=== PATIENT | male | born 1965 ===

== ENCOUNTER 2018-06-03 18:45 | Emergency (ER) | payer SELFPAY ==
[2018-06-03 19:01] VITALS: BMI 28.8
--- NOTE | 2018-06-03 20:22 | ED PDOC ---
Arrival/HPI - General Chief Complaint: Abnormal Skin Integrity Time Seen by Provider: 06/03/18 19:35 Historian: Patient - History of Present Illness Narrative History of Present Illness (Text): 06/03/18 20:20 Fantasma Doan is a 52 year old male with no significant past medical history, who presents to the emergency department complaining of a cyst to his mid- back. Patient states he first noticed the cyst approximately 4 days ago, which has gradually increased in size since then. Patient notes some associated discomfort to the affected area. Patient denies any fever, chills, neck pain, headache, dizziness, or any other complaints. Time/Duration: < week (4 days ago) Symptom Onset: Gradual Symptom Course: Unchanged Context: Home Past Medical History - Provider Review Nursing Documentation Reviewed: Yes - Infectious Disease Hx of Infectious Diseases: None - Psychiatric Hx Substance Use: No - Anesthesia Hx Anesthesia: No Family/Social History - Physician Review Nursing Documentation Reviewed: Yes Family/Social History: Unknown Family HX Smoking Status: Never Smoked Hx Alcohol Use: Yes Frequency of alcohol use: Socially Hx Substance Use: No Allergies/Home Meds Allergies/Adverse Reactions: Allergies No Known Allergies Allergy (Verified 06/03/18 19:00) Review of Systems - Physician Review All systems were reviewed & negative as marked: Yes - Review of Systems Constitutional: Normal. absent: Fatigue, Fevers Eyes: Normal. absent: Vision Changes, Eye Pain ENT: Normal Respiratory: Normal. absent: SOB, Cough, Wheezing Cardiovascular: Normal. absent: Chest Pain, Palpitations, Edema Gastrointestinal: Normal. absent: Abdominal Pain Musculoskeletal: Normal. absent: Neck Pain Skin: Abscess (cyst in upper back. ). absent: Rash Physical Exam Vital Signs Reviewed: Yes Vital Signs Temp Pulse Resp BP Pulse Ox 06/03/18 19:03 98.4 F 71 18 139/82 97 Temperature: Afebrile Blood Pressure: Normal Pulse: Regular Respiratory Rate: Normal Appearance: Positive for: Well-Appearing, Non-Toxic, Comfortable Pain Distress: None Mental Status: Positive for: Alert and Oriented X 3 - Systems Exam Head: Present: Atraumatic, Normocephalic Pupils: Present: PERRL Extroacular Muscles: Present: EOMI Conjunctiva: Present: Normal Mouth: Present: Moist Mucous Membranes Neck: Present: Normal Range of Motion. No: Meningeal Signs, MIDLINE TENDERNESS, Paraspinal Tenderness Respiratory/Chest: Present: Clear to Auscultation, Good Air Exchange. No: Respiratory Distress, Accessory Muscle Use, Decreased Breath Sounds, Rales Cardiovascular: Present: Regular Rate and Rhythm, Normal S1, S2. No: Murmurs Abdomen: No: Tenderness, Distention, Peritoneal Signs Back: Present: Normal Inspection. No: CVA Tenderness, Midline Tenderness, Paraspinal Tenderness Upper Extremity: Present: Normal Inspection. No: Cyanosis, Edema Lower Extremity: Present: Normal Inspection. No: Edema Neurological: Present: GCS=15, Speech Normal Skin: Present: Warm, Dry, Normal Color, Abscess (3 cm cystic mass (sebaceous cy st) with some overlying erythema. ). No: Rashes Psychiatric: Present: Alert, Oriented x 3, Normal Insight, Normal Concentration Medical Decision Making ED Course and Treatment: 06/03/18 20:52 Impression: 52 year old male who presents complaining of a cyst to the mid-upper back. Differential Diagnosis included but are not limited to: sebaceous cyst Plan: -- Keflex -- Reassess and disposition Progress Notes: Case discussed with surgical supervisor health consultant, who is aware and agrees with plan. Recommends antibiotics prior to any surgical incision to avoid infection, follow-up with the surgeon next week. Discussed plan with patient who expresses understanding. All questions answered and there is agreement with the plan to discharge home with instructions. Patient stable for discharge. Instructed to return if symptoms persist or worsen. - Scribe Statement The provider has reviewed the documentation as recorded by the Scribe Delmis Huynh training under Zoey Downing Documented by Delmis Huynh] acting as a scribe for Bharat Burleson MD. Disposition/Present on Arrival - Present on Arrival Any Indicators Present on Arrival: No History of DVT/PE: No History of Uncontrolled Diabetes: No Urinary Catheter: No History of Decub. Ulcer: No History Surgical Site Infection Following: None - Disposition Have Diagnosis and Disposition been Completed?: Yes Diagnosis: Infected sebaceous cyst of skin Disposition: HOME/ ROUTINE Disposition Time: 20:23 Patient Plan: Discharge Patient Problems: Current Active Problems Problem Status Onset Infected sebaceous cyst of skin Acute Condition: STABLE Discharge Instructions (ExitCare): Epidermal Cyst (DC) Additional Instructions: Take antibiotics as prescribed/follow up with the surgeon next week Prescriptions: Cephalexin [cephalexin] 500 mg PO BID #[id number] cap Referrals: Keyshawn Joseph MD [Staff Provider] - Follow up with primary Josue Hamm MD [Staff Provider] - Follow up with primary Forms: [employer] (Swedish)
[2018-06-03 21:20] VITALS: BP 117/91; PULSE 64; RESP 16; TEMP 97.8; O2SAT 98
== END 2018-06-03 21:19 | disposition home or self-care (01) ==
LOC: ED 18:45
DX: L72.3 Sebaceous cyst (principal)